=== PATIENT | female | born 1980 | race American Indian/Alaskan Native ===

== ENCOUNTER 2021-06-20 11:11 | Emergency (ER) | payer BC ==
[2021-06-20] MEDS ORDERED: ACETAMINOPHEN W/CODEINE 300-30 MG TAB PO ONE (11:48)
--- NOTE | 2021-06-20 11:52 | Emergency Department Report ---
ED Fall HPI - General Chief Complaint: Fall Stated Complaint: RGHT FOOT INJURY Time Seen by Provider: 06/20/21 11:41 Source: patient Mode of arrival: Wheelchair - History of Present Illness Initial Comments: Patient is a 41-year-old female presents emergency room with complaints of a right ankle injury that occurred just prior to arrival. Patient states that she was walking her dogs down the steps outside when she accidentally misstepped and fell down 2 stairs. She states that she had a inversion injury of her right ankle. She denies any previous injury of this ankle or foot. She denies any numbness or weakness. She states that she has been ambulatory but experiences pain with ambulation. No past medical history. No allergies to medications. Last menstrual cycle 06/04/2021. - Related Data Previous Rx's Medication Instructions Recorded Last Taken Type Naproxen 500 mg PO BID PRN #14 tab 06/20/21 Unknown Rx Allergies Allergy/AdvReac Type Severity Reaction Status Date / Time No Known Allergies Allergy Verified 06/20/21 12:02 ED Review of Systems ROS: Stated complaint: RGHT FOOT INJURY Other details as noted in HPI Comment: All other systems reviewed and negative ED Past Medical Hx - Medications Home Medications: Home Medications Medication Instructions Recorded Confirmed Last Taken Type Naproxen 500 mg PO BID PRN #14 tab 06/20/21 Unknown Rx ED Physical Exam - General Limitations: No Limitations General appearance: alert, in no apparent distress - Head Head exam: Present: atraumatic, normocephalic - Eye Eye exam: Present: normal appearance - ENT ENT exam: Present: mucous membranes moist - Neurological Exam Neurological exam: Present: alert, oriented X3 - Psychiatric Psychiatric exam: Present: normal affect, normal mood - Skin Skin exam: Present: warm, dry, other (right lateral ankle ttp, achiles is intact, no foot ttp, no deformity, FROM, neurovascularly intact) ED Course Vital Signs 06/20/21 11:28 Temperature 98.3 F Pulse Rate 82 Respiratory 18 Rate Blood Pressure 138/84 [Right] O2 Sat by Pulse 100 Oximetry ED Medical Decision Making - Radiology Data Radiology results: report reviewed Ordering Physician: QUANG HURLEY Date of Service: 06/20/21 Procedure(s): XR foot 3+V RT Accession Number(s): [id number] cc: RUBIN L. LAKSHMI, [place] Fluoro Time In Minutes: RIGHT ANKLE 3 VIEWS RIGHT FOOT 3 VIEWS INDICATION: fall, right lateral ankle pain. COMPARISON: No relevant prior imaging study available. FINDINGS: Right foot: No acute fracture or dislocation. No significant soft tissue swelling. Right ankle: No acute fracture or dislocation. No significant degenerative changes. IMPRESSION: 1. No acute findings. Signer Name: Duncan Josue MD Signed: 06/20/2021 12:41 PM Workstation Name: [id number] Transcribed By: CARINA Dictated By: Duncan Josue MD Electronically Authenticated By: Duncan Josue MD Signed Date/Time: 06/20/21 124 DD/ 1240 TD/TT: - Medical Decision Making Patient is a 41-year-old female presents emergency room with complaints of a right ankle injury that occurred just prior to arrival. Patient states that she was walking her dogs down the steps outside when she accidentally misstepped and fell down 2 stairs. She states that she had a inversion injury of her right ankle. She denies any previous injury of this ankle or foot. She denies any numbness or weakness. She states that she has been ambulatory but experiences pain with ambulation. No past medical history. No allergies to medications. Last menstrual cycle 06/04/2021. Vitals are stable. On exam:right lateral ankle ttp, achiles is intact, no foot ttp, no deformity, FROM, neurovascularly intact. X-ray right ankle and foot 1. No acute findings. Patient given pain medication on the emergency department as she did not drive with improvement of her symptoms. Discussed all findings with patient. Symptoms and examination appear likely consistent with ankle sprain. patient placed in ankle stirrup splint and given crutches by tech and remain neurovascularly intact. Patient given prescription for medication. Advised patient please take medication as prescribed. May use ice for 15 minutes at a time, rest, elevation of the leg. Follow-up with orthopedic doctor. Return to emergency room for any new or worsening symptoms. Critical care attestation.: If time is entered above; I have spent that time in minutes in the direct care of this critically ill patient, excluding procedure time. ED Disposition Clinical Impression: Ankle sprain Qualifiers: Encounter type: initial encounter Involved ligament of ankle: unspecified ligament Laterality: right Qualified Code(s): S93.401A - Sprain of unspecified ligament of right ankle, initial encounter Disposition: HOME / SELF CARE / HOMELESS Is pt being admited?: No Does the pt Need Aspirin: No Condition: Stable Instructions: Ankle Sprain, Elastic Bandage and RICE Therapy Additional Instructions: please take medication as prescribed. May use ice for 15 minutes at a time, rest, elevation of the leg. Follow-up with orthopedic doctor. Return to emergency room for any new or worsening symptoms. Prescriptions: Naproxen 500 mg PO BID PRN #14 tab PRN Reason: pain Referrals: PRIMARY CARE, [Primary Care Provider] - 3-5 Days FORTINO PATINO MD [Staff Physician] - 3-5 Days Time of Disposition: 12:50 Print Language: KAZAKH
[2021-06-20 12:01] VITALS: BP 138/84
--- NOTE | 2021-06-20 12:45 | XRay Report ---
RIGHT ANKLE 3 VIEWS RIGHT FOOT 3 VIEWS INDICATION: fall, right lateral ankle pain. COMPARISON: No relevant prior imaging study available. FINDINGS: Right foot: No acute fracture or dislocation. No significant soft tissue swelling. Right ankle: No acute fracture or dislocation. No significant degenerative changes. IMPRESSION: 1. No acute findings. Signer Name: Duncan Josue MD Signed: 06/20/2021 12:41 PM Workstation Name: [id number]
== END 2021-06-20 13:24 | disposition home or self-care (01) ==
LOC: ED 11:11
DX: S93.401A Sprain of unspecified ligament of right ankle, initial encounter (principal); Z79.899 Other long term (current) drug therapy; W07.XXXA Fall from chair, initial encounter; Y93.89 Activity, other specified; Y92.89 Other specified places as the place of occurrence of the external cause; Y99.8 Other external cause status
CPT/HCPCS: 99283